=== PATIENT | male | born 1985 | race African-American/Black ===

== ENCOUNTER 2023-12-30 03:22 | Emergency (ER) | payer OTHER, SELFPAY ==
[~2023-12-30] VITALS: Ht 180.3 cm; Wt 76.7 kg
[2023-12-30] MEDS ORDERED: ACET650S3 PR (03:31)
[2023-12-30] MEDS ORDERED: ACET650T15 PO (03:31)
[2023-12-30] MEDS ORDERED: ACET-861 PO (03:31)
[2023-12-30] MEDS ORDERED: IBUP80TA PO (03:31)
[2023-12-30] MEDS ORDERED: BAYE325T13 PO (03:31)
[2023-12-30] MEDS ORDERED: ACET-683 PO (03:31)
[2023-12-30] MEDS ORDERED: MEDR4PAK PO (06:57)
[2023-12-30] MEDS ORDERED: NAPR-837 PO (06:57)
[2023-12-30] MEDS ORDERED: METH-1165 PO (06:57)
[2023-12-30] MEDS: LIDOCAINE 5% (LIDODERM) PATCH TD ONE (07:21)
[2023-12-30] MEDS: ACETAMINOPHEN 325 MG TAB PO ONE (07:22)
[2023-12-30] MEDS: KETOROLAC 60MG 2ML VIAL IM ONE (07:23)
[2023-12-30 07:43] VITALS: BP 145/78; TEMP 97.7; O2SAT 97
== END 2023-12-30 07:44 | disposition home or self-care (01) ==
LOC: M ED 03:22
DX: M51.372 Other intervertebral disc degeneration, lumbosacral region with discogenic back pain and lower extremity pain (principal)
CPT/HCPCS: 72110; 96372; 99283; J1885